=== PATIENT | male | born 2000 | race Caucasian/White ===

== ENCOUNTER 2020-11-16 18:00 | Emergency (ER) | payer OTHER ==
[~2020-11-16] VITALS: Ht 180.3 cm; Wt 122.5 kg
[~2020-11-16 18:00] MED LIST: ALBUTEROL INH; ALLERGEN EAR DR15 M1 OT; BACITRACIN 500U30 G1 TOP; CLARITIN10 MG PO; CORTISPORIN OTI10 M2 OT; CORTISPORIN OTI10 M2 OTIC; IBUPROFEN 600600 M1 PO; IBUPROFEN 800800 M1 PO; KEFLEX500 MG PO; PROVENTIL; TYLENOL W/CODEI1 TA2 PO; ZYRTEC
[2020-11-16] MEDS ORDERED: IBUPROFEN 800800 M1 PO (18:57)
[2020-11-16 19:45] VITALS: BP 127/68
== END 2020-11-16 19:45 | disposition home or self-care (01) ==
LOC: M.ERS 18:00
DX: S93.402A Sprain of unspecified ligament of left ankle, initial encounter (principal); J45.909 Unspecified asthma, uncomplicated; Z88.1 Allergy status to other antibiotic agents; X50.1XXA Overexertion from prolonged static or awkward postures, initial encounter; Y93.89 Activity, other specified; Y92.89 Other specified places as the place of occurrence of the external cause; Y99.8 Other external cause status

== ENCOUNTER 2021-02-18 22:55 | Emergency (ER) | payer OTHER ==
[~2021-02-18] VITALS: Ht 180.3 cm; Wt 127.0 kg
[2021-02-19 02:11] LABS: ABSOLUTE EOSINOPHILS 0.1 thou/uL (0.0-0.7); ABSOLUTE LYMPHOCYTES 0.4 thou/uL (0.8-5.3); BASOPHILS 0.5 %; EOSINOPHILS 1.5 %; HEMATOCRIT 43.9 % (42.0-52.0); LYMPHOCYTES 4.7 %; MCH 29.2 pg (26.0-34.0); MCHC 34.2 g/dL (28.0-37.0); MCV 85.5 fL (80.0-100.0); MONOCYTES 11.2 %; MPV 6.9 fl. (7.2-11.1); NUCLEATED RBCS 0 /100WBC; PLATELET COUNT* 272 thou/uL (150-400); POLYS 82.1 %; RBC 5.13 mil/uL (4.50-6.00); WBC 8.5 thou/uL (4.0-11.0)
[2021-02-19 02:34] LABS: CALCIUM 8.9 mg/dL (8.5-10.1); POTASSIUM 4.1 mmol/L (3.5-5.1)
[2021-02-19 02:38] LABS: ALBUMIN 4.2 g/dL (3.4-5.0); TOTAL BILIRUBIN 0.5 mg/dL (<0.1-1.0); TOTAL PROTEIN 7.3 g/dL (6.4-8.2)
[2021-02-19] MEDS ORDERED: ZOFRAN ODT4 MG PO (05:04)
[2021-02-19] MEDS ORDERED: HYDROCODON-ACE1 EAC7 PO (05:04)
[2021-02-19 05:11] LABS: URINE BILIRUBIN NEGATIVE (Negative); URINE BLOOD NEGATIVE (Negative); URINE CLARITY CLEAR; URINE COLOR YELLOW; URINE GLUCOSE-RANDOM NEGATIVE (Negative); URINE KETONES NEGATIVE (Negative); URINE LEUKOCYTES-REFLEX NEGATIVE (Negative); URINE NITRITE-REFLEX NEGATIVE (Negative); URINE PROTEIN NEGATIVE (Negative)
[2021-02-19] MEDS ORDERED: AMOXICILLIN875 MG PO (05:44)
[2021-02-19 05:50] VITALS: BP 134/58
== END 2021-02-19 05:51 | disposition home or self-care (01) ==
LOC: M.ERS 22:55
PROVIDERS: Personal Emergency Response Attendant
DX: B34.9 Viral infection, unspecified (principal); J45.909 Unspecified asthma, uncomplicated; Z91.048 Other nonmedicinal substance allergy status; Z88.1 Allergy status to other antibiotic agents